=== PATIENT | female | born 1945 | race Caucasian/White ===

== ENCOUNTER → 2016-07-20 | Outpatient (CLI) | payer MEDICARE, BC ==
[~2016-07-20] MED LIST: ADVIL200 MG PO; ASPIRIN 81M81 MG/TA2 PO; ASPIRIN E.C. 8181 MG PO; BENADRYL25 M1 PO; BENADRYL25 M2 PO; CALCIUM1 CAP PO; CELEXA 20MG20 MG/TAB PO; CELEXA20 MG PO; CEPHALEXIN500 M1 PO; MULTIPLE VITAMI1 CAP PO; NORCO 325 MG-51 TAB PO; PRILOSEC 20MG20 MG PO; STOOL SOFTENER100 M2 PO; TYLENOL 325MG325 MG PO; VITAMIN D1000 IU PO
== END ==
LOC: MC.RAD 07:35
DX: Z12.31 Encounter for screening mammogram for malignant neoplasm of breast (principal); D24.2 Benign neoplasm of left breast; D24.1 Benign neoplasm of right breast; Z85.3 Personal history of malignant neoplasm of breast; Z80.3 Family history of malignant neoplasm of breast

== ENCOUNTER → 2017-08-22 | Outpatient (CLI) | payer MEDICARE, BC | LOC: MC.RAD 07:38 | DX: Z12.31 Encounter for screening mammogram for malignant neoplasm of breast (principal) ==

== ENCOUNTER → 2018-09-10 | Outpatient (CLI) | payer MEDICARE, BC | LOC: MC.RAD 08:59 | DX: Z12.31 Encounter for screening mammogram for malignant neoplasm of breast (principal); Z98.890 Other specified postprocedural states ==

== ENCOUNTER → 2019-10-22 | Outpatient (CLI) | payer MEDICARE, BC | LOC: MC.RAD 08:27 | DX: Z12.31 Encounter for screening mammogram for malignant neoplasm of breast (principal); Z98.890 Other specified postprocedural states; Z85.3 Personal history of malignant neoplasm of breast ==

== ENCOUNTER → 2020-11-12 | Outpatient (CLI) | payer MEDICARE, BC | LOC: MC.RAD 08:45 | DX: Z12.31 Encounter for screening mammogram for malignant neoplasm of breast (principal); Z98.890 Other specified postprocedural states; Z98.82 Breast implant status ==

== ENCOUNTER 2021-08-11 10:15 | Observation (INO) | payer MEDICARE, BC ==
[~2021-08-11] VITALS: Ht 157.5 cm; Wt 79.8 kg
[2021-08-11 10:39] LABS: BASO % 0.5 % (0.0-2.0); EOS # 0.2 K/mm3 (0.0-0.7); EOS % 3.2 % (0.0-4.0); GRAN # 4.2 K/mm3 (1.4-6.5); GRAN % 56.2 % (42.2-75.2); HEMOGLOBIN 12.7 g/dl (12.5-16.0); LYMPH # 2.4 K/mm3 (1.2-3.4); LYMPH % 31.4 % (20.0-51.0); MEAN CELL VOLUME 90 fl (80.0-100.0); MEAN CORPUSCULAR HEMOGLOBIN 29 pg (27-31); MEAN CORPUSCULAR HGB CONC 33 g/dl (33.0-37.0); MONO # 0.7 K/mm3 (0.1-0.6); MONO % 8.6 % (1.7-9.3); PLATELET COUNT 390 K/mm3 (130-400); RED BLOOD COUNT 4.33 M/mm3 (4.10-5.30); REDCELL DISTRIBUTION WIDTH-CV 13.9 % (11.5-14.5)
[2021-08-11 10:58] LABS: ALBUMIN 3.7 gm/dL (3.4-4.8); BILIRUBIN,TOTAL 0.3 mg/dL (0.2-1.2); CREATININE, serum 0.9 mg/dL (0.57-1.11); POTASSIUM 4.3 mmol/L (3.5-4.5); TOTAL PROTEIN 7.2 gm/dL (6.2-8.1)
[2021-08-11 11:03] LABS: TROPONIN-I 0.014 ng/mL (0.00-0.033)
[2021-08-11 11:52] LABS: INR 1.1 (0.8-3.0); PROTHROMBIN TIME 11.9 SECONDS (9.7-12.8)
[2021-08-11] MEDS ORDERED: PROTONIX 40MG T40 MG PO (12:37)
[2021-08-11] MEDS ORDERED: LIPITOR20 MG PO (12:37)
[2021-08-11] MEDS ORDERED: REMERON 15M15 MG/TA1 PO (12:37)
[2021-08-11] MEDS ORDERED: SEROQUEL 2525 MG/TAB PO (12:37)
[2021-08-11 16:10] LABS: CHOLESTEROL RISK RATIO 2.5
[2021-08-11 16:51] VITALS: BP 128/65; PULSE 76; TEMP 97.7
--- NOTE | 2021-08-11 19:26 | NUR ---
Patient arrived to the floor from ED and has been doing well since. Daughter is at the bedside. Patient is A&Ox, weakness is noted in her left side. No slurred speech is noted. Patient states she is feeling much better as compared to this morning. Call light is w/in reach and patient instructed to call if any needs arise.
--- NOTE | 2021-08-11 20:00 | NUR ---
PATIENT IS A&O. VSS ON TELE. NO C/O PAIN OR NAUSEA. 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 PATIENT REQUIRED 1 ASSIST WITH ACTIVITIES AND TO COMMODE. PT/OT/ST CONSULTED. SWALLOWING IS GOOD AND TOLERATING AHA DIET. GAVE HS MEDS PER ORDERS WITHOUT ANY ISSUES. IV FLUIDS INFUSING VIA PUMP INTO RIGHT AC IV. NEURO CHECKS COMPLETE. HEAD TO TOE ASSESSMENT DONE, SEE CHARTING. NO OTHER NEEDS AT THIS TIME. PATIENT RESTING UP IN BED WATCHING TV. LIGHTS TURNED DOWN LOW. CALL LIGHT IN REACH. BED ALARM ON.
[2021-08-11 20:41] VITALS: BP 107/81; PULSE 74; TEMP 97.8
[2021-08-12 00:50] VITALS: BP 108/57; PULSE 69; TEMP 98.1
[2021-08-12 04:11] VITALS: BP 96/54; PULSE 71; TEMP 97.5
[2021-08-12 06:36] LABS: BASO % 0.6 % (0.0-2.0); EOS # 0.3 K/mm3 (0.0-0.7); EOS % 4.7 % (0.0-4.0); GRAN # 3.4 K/mm3 (1.4-6.5); GRAN % 53.4 % (42.2-75.2); HEMATOCRIT 37.1 % (37.0-47.0); HEMOGLOBIN 12.1 g/dl (12.5-16.0); LYMPH # 2.1 K/mm3 (1.2-3.4); LYMPH % 32.4 % (20.0-51.0); MEAN CELL VOLUME 89 fl (80.0-100.0); MEAN CORPUSCULAR HEMOGLOBIN 29 pg (27-31); MEAN CORPUSCULAR HGB CONC 33 g/dl (33.0-37.0); MEAN PLATELET VOLUME 9.3 fl (7.4-10.4); MONO # 0.6 K/mm3 (0.1-0.6); MONO % 8.7 % (1.7-9.3); PLATELET COUNT 348 K/mm3 (130-400); RED BLOOD COUNT 4.17 M/mm3 (4.10-5.30)
[2021-08-12 06:48] LABS: ALBUMIN 3.2 gm/dL (3.4-4.8); CALCIUM 8.5 mg/dL (8.4-10.2); CREATININE, serum 0.85 mg/dL (0.57-1.11); MAGNESIUM 2.1 mg/dL (1.6-2.6)
[2021-08-12 07:26] VITALS: BP 117/74; PULSE 70; TEMP 98.2
--- NOTE | 2021-08-12 09:21 | NUR ---
First visit from the library cataloging technician. NO needs right now.
--- NOTE | 2021-08-12 09:44 | NUR ---
Social Work student met with Elvie and Yadiel, the patient's daughters, at bedside while the patient was in an MRI to complete the intake. Patient lives alone in [place] as her recently two weeks ago. The patient's daughters expressed that the patient will be put on depression meds soon as she has been handling her depression with family support since the . Patient sees Dr. Gomez for primary care, and she receives her medications through [facility]. Patient did not previously use an durable medical equiptment at home. The daughters state that the patient is independent with her ADL's. Elvie and Yadiel state that the patient may have a DPOA-HC at home filled out, but they stated that "there is a lot of paperwork for the defense attorney" they are currently handling as well. ISADORA found next of kin: Patient is , has two daughters, Elvie(ph#[phone]) and Yadiel(ph#[phone]), and one living sister, Alyssa Bell(ph#[phone]). Patient's daughters expressed that they would like to wait until PT/OT works with the patient before expressing concerns on placement or any help needed at home. SW verbalized understanding. *Discharge plan: PT/OT recs*
--- NOTE | 2021-08-12 09:44 | NUR ---
Patient appears to be doing well this morning. States she is feeling better than yesterday. Left sided weakness is still present. Patient remains a 1x assist w/ ambulation. Patient is A&Ox4 and speech is clear. Patient's daughter is at the bedside. Patient taken down for MRI.
[2021-08-12 11:25] VITALS: BP 107/63; PULSE 75; TEMP 98.9
[2021-08-12] MEDS ORDERED: PLAVIX 75MG TAB75 MG PO (12:25)
[2021-08-12] MEDS ORDERED: LIPITOR 40MG TA40 MG PO (12:25)
[2021-08-12] MEDS ORDERED: ASPIRIN 81M81 MG/TA2 PO (12:26)
--- NOTE | 2021-08-12 13:51 | NUR ---
Social Work student followed up with patient to discuss home health as PT/OT reccommended. Family was present at bedside during this time. SW addressed everyone and asked how they were feeling about the possibility of home health. Patient said she was open to it and the daughters agreed. SW gave the patient a list of Medicare home health agencies that service the [facility]. Patient said that she would prefer [facility] as her first preference. The patient's daughters agreed that [facility] would be a good backup, and patient agreed. SW student sent a referral to Saida at [facility].
--- NOTE | 2021-08-12 14:38 | NUR ---
Saida, at [facility], reports that they are able to accept the patient for services.
[2021-08-12 15:37] VITALS: BP 103/54; PULSE 74; TEMP 97.7
--- NOTE | 2021-08-12 18:15 | NUR ---
Patient has done well today. This RN assisted the patient to the bathroom; No weakness was noted and gait was steady. Patient's left director of radiology still weaker than the right. Patient remains A&Ox4. ST did report that patient pocketed some food during the evaluation.
[2021-08-12 20:21] VITALS: BP 93/52; PULSE 78; TEMP 98
[2021-08-13 00:18] VITALS: BP 101/53; PULSE 74; TEMP 97.5
[2021-08-13 04:26] VITALS: BP 112/57; PULSE 68; TEMP 98.1
[2021-08-13 05:45] LABS: BASO % 0.5 % (0.0-2.0); EOS # 0.3 K/mm3 (0.0-0.7); EOS % 4.5 % (0.0-4.0); GRAN # 3.9 K/mm3 (1.4-6.5); GRAN % 53.1 % (42.2-75.2); HEMOGLOBIN 11.4 g/dl (12.5-16.0); LYMPH # 2.3 K/mm3 (1.2-3.4); LYMPH % 31.2 % (20.0-51.0); MEAN CELL VOLUME 92 fl (80.0-100.0); MEAN CORPUSCULAR HEMOGLOBIN 29 pg (27-31); MEAN CORPUSCULAR HGB CONC 32 g/dl (33.0-37.0); MEAN PLATELET VOLUME 9.2 fl (7.4-10.4); MONO # 0.8 K/mm3 (0.1-0.6); MONO % 10.4 % (1.7-9.3); PLATELET COUNT 343 K/mm3 (130-400); RED BLOOD COUNT 3.91 M/mm3 (4.10-5.30); REDCELL DISTRIBUTION WIDTH-CV 14.2 % (11.5-14.5)
[2021-08-13 05:50] LABS: HEMATOCRIT 35.8 % (37.0-47.0)
--- NOTE | 2021-08-13 05:57 | NUR ---
ASSESSMENT COMPLETE FOR THIS SHIFT. PT RESTING IN BED WATCHING TV. PT DENIED PAIN, PALPITATIONS, SOB, N,V,D OR DIZZINESS. PT EXPRESSED BEING TIRED OF THE IV FLUIDS. PT'S NEURO CHECKS REMAIN STABLE. PT EXPRESSED NO OTHER NEEDS AT THIS TIME.
[2021-08-13 06:01] LABS: ALBUMIN 3.1 gm/dL (3.4-4.8); CALCIUM 8.8 mg/dL (8.4-10.2); CREATININE, serum 1.04 mg/dL (0.57-1.11); MAGNESIUM 2.1 mg/dL (1.6-2.6)
[2021-08-13 07:30] VITALS: BP 118/72; PULSE 72; TEMP 96.9
--- NOTE | 2021-08-13 10:23 | NUR ---
The patient is to discharge back home today, 08/13, with home health services for care home/PT/OT from [facility]. SW attempted to notify Saida at [facility]. SW left her a voicemail and faxed her orders. No additional needs at this time.
--- NOTE | 2021-08-13 12:33 | NUR ---
Primary nurse was assisted with [id number] patient care by [employer] [employer] student Deyanira Sheikh and [employer] instructor Brisa Anderson MSN, RN.
== END 2021-08-13 10:52 | disposition home or self-care (01) ==
LOC: COL.ER 10:15 → MEDICAL 12:26
PROVIDERS: Emergency Medicine; ADMIT Internal Medicine
DX: I63.89 Other cerebral infarction (principal); R47.81 Slurred speech; G81.94 Hemiplegia, unspecified affecting left nondominant side; I69.892 Facial weakness following other cerebrovascular disease; F32.A Depression, unspecified; E78.5 Hyperlipidemia, unspecified; K21.9 Gastro-esophageal reflux disease without esophagitis; F41.9 Anxiety disorder, unspecified; Z79.899 Other long term (current) drug therapy; Z85.3 Personal history of malignant neoplasm of breast
CPT/HCPCS: 99232-AI; A9575; G0378; J1650; J7030; Q9967

== ENCOUNTER → 2021-12-08 | Outpatient (CLI) | payer MEDICARE, BC ==
[~2021-12-08] MED LIST changes: +LIPITOR 40MG TA40 MG PO; +LIPITOR20 MG PO; +PLAVIX 75MG TAB75 MG PO; +PROTONIX 40MG T40 MG PO; +REMERON 15M15 MG/TA1 PO; +SEROQUEL 2525 MG/TAB PO
== END ==
LOC: MC.RAD 09:18
DX: Z12.31 Encounter for screening mammogram for malignant neoplasm of breast (principal)